=== PATIENT | female | born 1995 | race Caucasian/White ===

== ENCOUNTER 2023-02-22 21:44 | Emergency (ER) | payer MEDICARE, OTHER, SELFPAY ==
--- NOTE | 2023-02-22 21:55 | ED.GENADULT ---
HPI - General Adult General Chief complaint: Vaginal Bleeding Stated complaint: thinks possible miscarriage Time Seen by Provider: 02/22/23 21:52 History of Present Illness HPI narrative: 28-year-old female nonsmoker without chronic medical history presents with a chief complaint of concern for possible miscarriage. She states that she routinely has irregular periods and that her last normal period was back in September. She states that she took a test a few days ago and thinks it was likely faintly positive and had what she describes as implantation bleeding a few days later. She reports some lower back cramping. She states she has used two pads today. She denies any systemic complaints such as dizziness, weakness or lightheadedness. She has no chest pain or shortness of breath. She is had no fever or chills and denies urinary complaints Related Data Allergies Allergy/AdvReac Type Severity Reaction Status Date / Time bacitracin Allergy Intermediate Rash Verified 02/22/23 22:10 [From Triple Antibiotic] erythromycin base Allergy Intermediate Rash Verified 02/22/23 22:10 neomycin Allergy Intermediate Rash Verified 02/22/23 22:10 [From Triple Antibiotic] polymyxin B Allergy Intermediate Rash Verified 02/22/23 22:10 [From Triple Antibiotic] latex AdvReac Intermediate Redness of Verified 02/22/23 22:10 Skin Sulfa (Sulfonamide AdvReac Mild Abdominal Verified 02/22/23 22:10 Antibiotics) Pain Review of Systems Review of Systems Narrative: GENERAL: Denies chills, fatigue, malaise, fever, sweats. HEENT: Denies sinus pain, ear pain, sore throat, difficulty swallowing, dizziness. RESPIRATORY: Denies dyspnea, cough, wheezing, hemoptysis, sputum. CARDIOVASCULAR: Denies chest pain, palpitations, orthopnea, edema, GASTROINTESTINAL: Denies nausea, vomiting, abdominal pain, diarrhea, constipation, melena. : See HPI MUSCULOSKELETAL: denies weakness, joint pain, or bony pain SKIN: Denies rash, skin lesions, or other NEUROLOGIC: Denies weakness, headache, numbness, change in speech, confusion, seizures, incoordination. PSYCHIATRIC: No concerning psychosocial issues. 12 point review of systems is negative except for those stated above Patient History Social History Smoking Status: Never smoker Exam Narrative Exam Narrative: GENERAL: [] year old patient appears stated age. Well-developed patient, in mild distress. HEAD: Atraumatic. Normocephalic. EYES: Pupils equal round and reactive. Extraocular motions intact. No scleral icterus. No injection or drainage. ENT: Nose without bleeding, purulent drainage. Throat without erythema, tonsillar hypertrophy or exudate. Airway patent. NECK: Trachea midline. Non tender CARDIOVASCULAR: Regular rate and rhythm without murmurs, gallops, or rubs. RESPIRATORY: Clear to auscultation. Breath sounds equal bilaterally. No wheezes, rales, or rhonchi. GASTROINTESTINAL: Abdomen soft, non-tender, nondistended. EXTREMITIES: No edema or joint tenderness. BACK: Nontender without deformity or crepitance. No flank tenderness. NEURO: AOx3. SKIN: No rash or erythema of visible areas Initial Vital Signs Initial Vital Signs: Vital Signs Temperature 98.7 F 02/22/23 22:03 Pulse Rate 80 02/22/23 22:03 Respiratory Rate 16 02/22/23 22:03 Blood Pressure 150/92 H 02/22/23 22:03 Pulse Oximetry 96 02/22/23 22:03 Oxygen Delivery Method Room Air 02/22/23 22:03 Course Orders Ordered: ED Orders 02/22/23 22:37 US pelvic complete Stat Urine Microscopic Stat Vital Signs Vital signs: Vital Signs - 8 hr 02/22/23 22:03 02/22/23 23:42 02/22/23 23:43 Temperature 98.7 F Pulse Rate 80 Respiratory Rate 16 Blood Pressure 150/92 H 134/94 H 127/90 Pulse Oximetry 96 Oxygen Delivery Method Room Air 02/22/23 23:43 02/23/23 00:00 02/23/23 00:00 Temperature Pulse Rate 85 94 H Respiratory Rate Blood Pressure 140/93 H Pulse Oximetry 97 96 Oxygen Delivery Method Medical Decision Making Lab Data Labs: Lab Results 02/22/23 Range/Units 22:37 Urine RBC 1-5/hpf (0-5/HPF) Urine WBC 0-1/hpf (0-5/HPF) Ur Squamous Epith Cells 10-30 /hpf H (0-5/HPF) Urine Bacteria Many (>30) H (None) Urine Mucus 2+ H (Negative) Ur Culture Indicated? Cult not indicated Point of Care Testing Test Results Negative Urine Dip Bedside Urine Glucose Negative Bedside Urine Bilirubin - Negative Bedside Urine Ketone - Negative Urine Specific [place] 1.03 Bedside Urine Occult Blood +++ Bedside Urine pH 6 Bedside Urine Protein +/- 15 Bedside Urine Urobilinogen - Negative Bedside Urine Nitrite - Negative Bedside Urine Leukocytes - Negative Esterase Point of care testing: Point of Care Testing Test Results Negative Urine Dip Bedside Urine Glucose Negative Bedside Urine Bilirubin - Negative Bedside Urine Ketone - Negative Urine Specific [place] 1.03 Bedside Urine Occult Blood +++ Bedside Urine pH 6 Bedside Urine Protein +/- 15 Bedside Urine Urobilinogen - Negative Bedside Urine Nitrite - Negative Bedside Urine Leukocytes - Negative Esterase MDM Narrative Medical decision making narrative: [28] year old patient presents with cramping spotting, concerned for miscarriage Multiple etiologies for patient's symptoms considered including, but not limited to: [miscarriage vs. ectopic vs. other] Prior Charts reviewed in our EMR Primary Historian: patient Labs reviewed and interpreted by myself: urine Preg negative Imaging reviewed: US notes abnormal appearing L ovary Patient's symptoms improved over duration of stay with above-stated therapies. Findings and discharge diagnosis discussed with patient/family followed by verbalization of understanding Return precautions discussed with patient/family whom verbalize understanding of diagnosis and plan Discharge Plan Departure Patient Disposition: Home Clinical Impression: Vaginal bleeding Instructions: DI for Vaginal Bleeding Activity Restrictions/Additional Instructions: *You have been diagnosed with [cramping and mild vaginal bleeding, as we discussed your test tonight was negative. It will be important to follow-up with local gynecology to evaluate the findings on your ultrasound as we discussed. Their contact information is listed below, please call them later today to arrange follow-up *What to do: *Please continue to take your regular medications as directed. [ ] New medication prescriptions sent to your pharmacy: [ ] [ ] New medication written as a paper prescription [ ] No new medications given *Please follow up with *If you do not have a primary care provider please contact the [facility] Resource line at [phone]. They will ask some questions about your medical history and help get you set up with a doctor in the community. *Return to Emergency Department if you should have any new, worsening or concerning symptoms, such as [fever greater than 101 F, shaking chills, worsening pain, persistent vomiting or other bothersome symptoms] Referrals: Vee Grossman DO [Physician] - Stand Alone Forms: Patient Portal/API, Work Release Note
[2023-02-22 22:03] VITALS: BP 150/92; PULSE 80; RESP 16; TEMP 37.1; O2SAT 96; BMI 30.4
--- NOTE | 2023-02-22 22:37 | DI.US.S_ITS ---
PROCEDURE: US PELVIC COMPLETE INDICATIONS: CRAMPING/BLEEDING. POSITIVE HOME /NEGATIVE CLINIC. TECHNIQUE: Real-time scanning was performed of the pelvic organs, with image documentation. Additional endovaginal scanning was necessary due to incomplete visualization of the adnexal and endometrial structures by transabdominal scanning. COMPARISON: None. FINDINGS: Uterus: Uterus is anteverted and measures 6.4 x 4.3 x 2.8 cm. Endometrium measures up to 0.4 cm. There is suggestion of an arcuate uterus. Ovaries: The right ovary was not well seen. The left ovary measures 4.9 x 2.4 x 3.0 by cm, with a calculated ovarian volume of 18 cc. The left ovary demonstrates a lobulated hypoechoic mass measuring approximately 3.5 x 1.8 x 1.6 cm. There is internal vascularity on color Doppler interrogation. Other: No pathologic free abdominal or pelvic fluid. IMPRESSION: 1. No intrauterine identified. 2. Lobulated hypoechoic mass in the left ovary with internal vascularity. The findings are nonspecific and may represent an ovarian neoplasm. An ectopic cannot be fully excluded but the appearance is atypical. Recommend short-term follow-up ultrasound or consider further evaluation with MRI. We strive to produce accurate, complete, and clear reports of imaging services. To assist us in improving patient care, this report was composed using standard report templates and voice recognition software. Therefore, it may contain abnormal punctuation, insertions and/or omissions. Occasional wrong-word or sound-alike substitutions may occur. Though we review the report and make efforts to correct it, we do recommend that the report be read carefully in proper context to recognize any text inaccuracies. Dictated by: Clement De La Torre M.D. on 02/23/2023 at 0:02 Approved by: Clement De La Torre M.D. on 02/23/2023 at 0:06
[2023-02-22 22:51] LABS: Bacteria Urine Many (>30); RBC Urine 1-5/HPF (0-5/HPF); Squamous Epithelial Cell Urine 10-30 /HPF (0-5/HPF); WBC Urine 0-1/HPF (0-5/HPF)
[2023-02-22 22:52] LABS: Culture Indicated Urine Cult Not Indicated; Mucus Urine 2+ (Negative)
[2023-02-22 23:42] VITALS: BP 134/94
[2023-02-22 23:43] VITALS: BP 127/90; PULSE 85; O2SAT 97
[2023-02-23] VITALS: BP 140/93; PULSE 94; O2SAT 96
== END 2023-02-23 00:38 | disposition home or self-care (01) ==
PROVIDERS: Emergency Provider Emergency Medicine
DX: N93.9 Abnormal uterine and vaginal bleeding, unspecified (principal)
CPT/HCPCS: 76830; 76856; 81003; 81015; 81025; 99282; 99283

== ENCOUNTER 2023-04-20 13:38 | Emergency (ER) | payer MEDICARE, SELFPAY ==
[2023-04-20 13:48] VITALS: BP 125/93; PULSE 86; RESP 18; TEMP 36.9; O2SAT 98; BMI 29.7
--- NOTE | 2023-04-20 13:58 | DI.US.S_ITS ---
PROCEDURE: US PERIPH VENOUS LOW EXTREM LT INDICATIONS: LEFT LOWER EXTREMITY PAIN TECHNIQUE: Real-time imaging, as well as color and pulse Doppler interrogation, were performed of the lower extremity deep veins from the inguinal ligament to the popliteal fossa, with documentation of the visualized calf veins. COMPARISON: None. FINDINGS: The common femoral, femoral, popliteal, and the visualized calf veins are normally compressible, and free of intraluminal thrombus. Color and pulse Doppler demonstrate normal phasic intraluminal flow. There is normal augmentation response to distal compression maneuver. IMPRESSION: No findings of lower extremity deep venous thrombosis. Dictated by: Adam Louise M.D. on 04/20/2023 at 14:32 Approved by: Adam Louise M.D. on 04/20/2023 at 14:32
[2023-04-20 14:45] VITALS: BP 130/86; PULSE 99; RESP 20; TEMP 36.6; O2SAT 97
[2023-04-20 15:00] LABS: D Dimer 338 ng/ml (<500)
--- NOTE | 2023-04-20 15:16 | ED_ITS ---
HPI - Extremity Problem General Chief complaint: Extremity Problem,Nontraumatic Stated complaint: severe pain in LT leg/HX blood clots Time Seen by Provider: 04/20/23 14:27 Source: patient and family Mode of arrival: Wheelchair History of Present Illness HPI Narrative: 28-year-old female presents for evaluation of left calf pain. She woke last night with an excruciating cramp in her left calf. She she has a history of leg cramps for which her doctor suggested she take potassium tablets which she does intermittently. She has some concerns about a blood clot given that she was on an airplane ride 2 weeks ago. She has difficulty walking because of the pain. She has no chest pain shortness of breath, abdominal pain, back pain. She does not take control pills. She is generally healthy. Related Data Allergies Allergy/AdvReac Type Severity Reaction Status Date / Time bacitracin Allergy Intermediate Rash Verified 02/22/23 22:10 [From Triple Antibiotic] erythromycin base Allergy Intermediate Rash Verified 02/22/23 22:10 neomycin Allergy Intermediate Rash Verified 02/22/23 22:10 [From Triple Antibiotic] polymyxin B Allergy Intermediate Rash Verified 02/22/23 22:10 [From Triple Antibiotic] latex AdvReac Intermediate Redness of Verified 02/22/23 22:10 Skin Sulfa (Sulfonamide AdvReac Mild Abdominal Verified 02/22/23 22:10 Antibiotics) Pain Review of Systems Review of Systems ROS Unobtainable: All systems reviewed & are unremarkable except as noted in HPI and below Patient History Social History Smoking Status: Never smoker Smoking Status: Never smoker alcohol intake frequency: holidays/special occasions only Substance Use Type: does not use Exam Narrative Exam Narrative: GENERAL: 28 year old patient appears stated age. Well-developed patient, in mild distress. HEAD: Atraumatic. Normocephalic. EYES: Pupils equal round and reactive. Extraocular motions intact. No scleral icterus. No injection or drainage. ENT: Nose without bleeding, purulent drainage. CARDIOVASCULAR: Regular rate and rhythm without murmurs, gallops, or rubs. RESPIRATORY: Clear to auscultation. Breath sounds equal bilaterally. No wheezes, rales, or rhonchi. GASTROINTESTINAL: Abdomen soft, non-tender, nondistended. EXTREMITIES: No edema. Calves appear symmetrical. Skin is warm and dry without erythema. She is very tender along the left gastroc. NEURO: AOx3. SKIN: No rash or erythema of visible areas Initial Vital Signs Initial Vital Signs: Vital Signs Temperature 98.4 F 04/20/23 13:48 Pulse Rate 86 04/20/23 13:48 Respiratory Rate 18 04/20/23 13:48 Blood Pressure 125/93 H 04/20/23 13:48 Pulse Oximetry 98 04/20/23 13:48 Oxygen Delivery Method Room Air 04/20/23 13:48 Course Orders Ordered: Discontinued Medications Ketorolac Tromethamine (Ketorolac 30 Mg/Ml Vial) 30 mg IM NOW ONE Stop: 04/20/23 15:56 Last Admin: 04/20/23 15:58 Dose: Not Given Documented By: RONALDO Vital Signs Vital signs: Vital Signs - 8 hr 04/20/23 13:48 04/20/23 14:45 Temperature 98.4 F 97.9 F Pulse Rate 86 99 H Respiratory Rate 18 20 Blood Pressure 125/93 H 130/86 Pulse Oximetry 98 97 Oxygen Delivery Method Room Air Room Air MDM - Extremity (Nontraumatic) Differential Diagnosis Differential diagnosis: Likely superficial thrombophlebitis, deep venous thrombosis of upper extremity and other (Muscle strain.) Lab Data Labs: Lab Results 04/20/23 Range/Units 14:41 D-Dimer 338 (<500) ng/ml Imaging Data US - DVT: Radiologist's Impression: PROCEDURE: US PERIPH VENOUS LOW EXTREM LT INDICATIONS: LEFT LOWER EXTREMITY PAIN TECHNIQUE: Real-time imaging, as well as color and pulse Doppler interrogation, were performed of the lower extremity deep veins from the inguinal ligament to the popliteal fossa, with documentation of the visualized calf veins. COMPARISON: None. FINDINGS: The common femoral, femoral, popliteal, and the visualized calf veins are normally compressible, and free of intraluminal thrombus. Color and pulse Doppler demonstrate normal phasic intraluminal flow. There is normal augmentation response to distal compression maneuver. IMPRESSION: No findings of lower extremity deep venous thrombosis. Dictated by: Adam Louise M.D. on 04/20/2023 at 14:32 Approved by: Adam Louise M.D. on 04/20/2023 at 14:32 [facility] Narrative Medical decision making narrative: 28-year-old female with a history of leg cramps who presents with what sounds like another leg cramp. Exam is reassuring D-dimer is negative and ultrasound of the left lower extremity is negative for DVT. I am reassured that this is muscular in nature. Patient was discussed with Dr. Thomas who agrees with asse ssment and plan. Discharge Plan Departure Patient Disposition: Home Clinical Impression: Muscle strain of left lower extremity Qualifiers: Encounter type: initial encounter Qualified Code(s): S86.912A - Strain of unspecified muscle(s) and tendon(s) at lower leg level, left leg, initial encounter Instructions: DI for Nocturnal Leg Cramps, Stretching Routine Before Bedtime May Decrease Nighttime Leg Cramps Activity Restrictions/Additional Instructions: Test result are negative for a blood clot. Your exam is reassuring and I do think that the cramping caused some minor muscle injury that should resolve over time. You can use ice pack or heating pad to the area depending on what feels best. I would suggest he take ibuprofen at 400 mg 3 to 4 times a day with food. Continue to use your potassium as directed by your physician. You can add magnesium to your supplements at 200-300 mg per day. There is not a lot of conclusive evidence that it will reduce the frequency or severity of leg cramps but it does help some people. You can also get magnesium in nuts. Follow-up with your regular provider as needed. It was a pleasure take to take care of you today. Stand Alone Forms: Patient Portal/API, Work Release Note
[2023-04-20 16:04] VITALS: BP 126/80; PULSE 97; RESP 18; TEMP 36.9; O2SAT 96
== END 2023-04-20 16:09 | disposition home or self-care (01) ==
PROVIDERS: Emergency Provider Physician Assistant
DX: T14.8XXA Other injury of unspecified body region, initial encounter (principal); X58.XXXA Exposure to other specified factors, initial encounter
CPT/HCPCS: 85379; 93971; 99281; 99283

== ENCOUNTER → 2023-10-24 12:16 | Outpatient (CLI) | payer MEDICARE, SELFPAY ==
--- NOTE | 2023-10-24 12:18 | DI.US.S_ITS ---
PROCEDURE: US PELVIC COMPLETE INDICATIONS: Pelvic and perineal pain TECHNIQUE: Real-time scanning was performed of the pelvic organs, with image documentation. Additional endovaginal scanning was necessary due to incomplete visualization of the adnexal and endometrial structures by transabdominal scanning. COMPARISON: [facility], US, US PELVIC COMPLETE, 02/22/2023, 22:57. FINDINGS: Uterus: Uterus is anteverted and normal in size at 6.6 x 2.8 x 4.1 cm. The myometrium is homogeneous. The endometrium measures 5.4 mm combined thickness. Ovaries: The right ovary measures 1.6 x 2.7 x 1.4 cm, with a calculated ovarian volume of 3.2 cc. The left ovary measures 1.3 x 2.8 x 2.0 cm, with a calculated ovarian volume of 3.6 cc. The ovaries have a normal sonographic appearance. Less than 12 follicles can be seen in each ovary. No adnexal masses are seen. Other: No pathologic free abdominal or pelvic fluid. IMPRESSION: Unremarkable exam. We strive to produce accurate, complete, and clear reports of imaging services. To assist us in improving patient care, this report was composed using standard report templates and voice recognition software. Therefore, it may contain abnormal punctuation, insertions and/or omissions. Occasional wrong-word or sound-alike substitutions may occur. Though we review the report and make efforts to correct it, we do recommend that the report be read carefully in proper context to recognize any text inaccuracies. Dictated by: Yael Stewart M.D. on 10/24/2023 at 19:54 Approved by: Yael Stewart M.D. on 10/24/2023 at 19:55
== END ==
LOC: US 12:16
PROVIDERS: PCP Physician Assistant; Referring Provider Physician Assistant; Visit Provider Physician Assistant
DX: N92.6 Irregular menstruation, unspecified (principal); R10.2 Pelvic and perineal pain
CPT/HCPCS: 76830; 76856; 93975

== ENCOUNTER 2023-11-17 21:29 | Emergency (ER) | payer MEDICARE, SELFPAY ==
[2023-11-17] VITALS (7 sets, daily range): BP systolic 136–150; BP diastolic 69–102; PULSE 103–120; RESP 18; TEMP 36.8–37.7; O2SAT 96–97; BMI 28.8
--- NOTE | 2023-11-17 22:09 | ED_ITS ---
HPI - General Adult General Chief complaint: Fever Stated complaint: FLU LIKE SYMPTOMS/COVID+ Time Seen by Provider: 11/17/23 22:09 Source: patient Mode of arrival: Ambulatory Limitations: no limitations History of Present Illness HPI narrative: 28-year-old female with history of PCOS recently started on metformin but stopped it as she started developed flu-like symptoms. Patient states she has had fevers up to 102 F, nasal congestion cough muscle aches, sore throat, no hoarseness. No chest pain or shortness of breath. States she threw up once today when she took a leave but was on an empty stomach. She has not had any additional nausea or vomiting. She states little bit diarrhea. No urinary symptoms. No rash or skin changes. Patient states she took a home influenza test which was positive earlier today. She states symptoms started this Sunday 4 days ago. Patient has been taking a leave for fever, has not tried any Tylenol. She states did start metformin recently but was told by her phys ician to stop it as she is having flu symptoms. Patient states allergy to bacitracin, latex sulfa. No tobacco, no regular alcohol, no recreational drugs. Related Data Allergies Allergy/AdvReac Type Severity Reaction Status Date / Time bacitracin Allergy Intermediate Rash Verified 02/22/23 22:10 [From Triple Antibiotic] erythromycin base Allergy Intermediate Rash Verified 02/22/23 22:10 neomycin Allergy Intermediate Rash Verified 02/22/23 22:10 [From Triple Antibiotic] polymyxin B Allergy Intermediate Rash Verified 02/22/23 22:10 [From Triple Antibiotic] latex AdvReac Intermediate Redness of Verified 02/22/23 22:10 Skin Sulfa (Sulfonamide AdvReac Mild Abdominal Verified 02/22/23 22:10 Antibiotics) Pain Review of Systems Review of Systems ROS Unobtainable: All systems reviewed & are unremarkable except as noted in HPI and below Patient History Social History Smoking Status: Never smoker Smoking Status: Never smoker alcohol intake frequency: holidays/special occasions only Substance Use Type: does not use Exam Narrative Exam Narrative: GEN: well nourished, well appearing female, alert and oriented x 3, patient appears to be in mild distress. HEENT: Atraumatic, pupils are equal round reactive to light, extraocular movements are intact, nares, mild clear rhinorrhea, TMs are clear with no fluid, there is no conjunctival pallor. Throat is clear without any exudates, erythema, tonsillar enlargement or uvular deviation HEART: Regular rate and rhythm without murmur, clicks, rubs. LUNGS:Lungs clear to auscultation, no wheezes, rales, crackles, chest moves symmetrically, no tachypnea or accessory muscle use ABD:bowel sounds normal, soft, non-tender, no guarding, rebound, rigidity, no masses noted, no hepatosplenomegaly :No CVA tenderness MSCL: Non-tender, no muscle atrophy, muscles strength 5/5 upper and lower extremities, full range of motion, normal gait NEURO:CN 2-12 intact, sensation normal SKIN: No rash, erythema or other skin changes. Initial Vital Signs Initial Vital Signs: Vital Signs Pulse Rate 119 H 11/17/23 21:37 Pulse Oximetry 96 11/17/23 21:37 Course Orders Ordered: ED Orders 11/17/23 21:54 Respiratory Panel (Film Array) Stat Vital Signs Vital signs: Vital Signs - 8 hr 11/17/23 21:37 11/17/23 21:38 11/17/23 21:38 Temperature Pulse Rate 119 H 117 H Respiratory Rate Blood Pressure 136/94 H Pulse Oximetry 96 96 Oxygen Delivery Method 11/17/23 21:41 11/17/23 22:00 11/17/23 22:00 Temperature 99.8 F H Pulse Rate 116 H 108 H Respiratory Rate 18 Blood Pressure 136/94 H 141/102 H Pulse Oximetry 96 96 Oxygen Delivery Method Room Air 11/17/23 22:30 11/17/23 22:30 11/17/23 22:41 Temperature 98.3 F Pulse Rate 120 H Respiratory Rate Blood Pressure 150/69 H Pulse Oximetry 96 Oxygen Delivery Method 11/17/23 23:00 11/17/23 23:00 Temperature Pulse Rate 103 H Respiratory Rate Blood Pressure 147/95 H Pulse Oximetry 97 Oxygen Delivery Method Medical Decision Making Lab Data Labs: Lab Results 11/17/23 Range/Units 21:54 Chlamy pneumoniae PCR Not detected (Not Detect) Adenovirus (PCR) Not detected (Not Detect) B.parapertussis DNA PCR Not detected (Not Detecte) Coronavirus OC43 (PCR) Not detected (Not Detect) Coronavirus HKU1 (PCR) Not detected (Not Detect) Coronavirus 229E (PCR) Not detected (Not Detect) SARS-CoV-2 (PCR) Not detected (Not Detecte) Coronavirus NL63 (PCR) Not detected (Not Detect) Human Metapneumovir PCR Not detected (Not Detect) Influenza Type A (PCR) Not detected (Not Detect) Influenza Type B (PCR) Not detected (Not Detect) M. pneumoniae (PCR) Not detected (Not Detect) Parainfluenza 1 (PCR) Not detected (Not Detect) Parainfluenza 2 (PCR) Not detected (Not Detect) Parainfluenza 3 (PCR) Detected H (Not Detect) Parainfluenza 4 (PCR) Not detected (Not Detect) RSV (PCR) Not detected (Not Detect) Entero/Rhino (PCR) Not detected (Not Detect) MDM Narrative Medical decision making narrative: 28-year-old female who reports flu symptoms who had a home flu test which was positive. Patient has symptoms consistent with influenza or similar infection. Respiratory panel is positive for parainfluenza. Patient was slightly tachycardic but has been improving while she has been orally hydrating she is afebrile then felt appropriate for discharge home. She was taking alleve a little too frequently, discussed proper dosing and also encouraged Tylenol for fevers and symptoms. Discharge Plan Departure Patient Disposition: Home Clinical Impression: Parainfluenza infection Instructions: DI for Influenza -- Adult Activity Restrictions/Additional Instructions: You have tested positive for parainfluenza, this is common viral illness that can cause upper respiratory infections and flu-like symptoms. Typically last 7-10 days. Can take Tylenol up to a 1000 mg every 6 hours as needed for fevers or symptoms, you can take a leave Aleve or naproxen 1 tablet every 8-12 hours, do not exceed 3 tablets in 24 hours. I do recommend that you continue to hydrate. Please return for difficulty with breathing, chest pain, lightheadedness or passing out, persistent vomiting, signs of dehydration or other new or concerning changes. Referrals: Tierra Mckeon PA-C [Primary Care Provider] - Stand Alone Forms: Patient Portal/API, Work Release Note
[2023-11-17 22:50] LABS: Adenovirus Not Detected (Not Detect); B. parapertussis Not Detected (Not Detecte); Bordetella pertussis Not Detected (Not Detect); Chlamydophila pneumoniae Not Detected (Not Detect); Coronavirus 229E Not Detected (Not Detect); Coronavirus HKU1 Not Detected (Not Detect); Coronavirus NL 63 Not Detected (Not Detect); Coronavirus OC43 Not Detected (Not Detect); Human Metapneumovirus Not Detected (Not Detect); Human Rhinovirus/Enterovirus Not Detected (Not Detect); Influenza A Not Detected (Not Detect); Influenza B Not Detected (Not Detect); Mycoplasma pneumoniae Not Detected (Not Detect); Parainfluenza Virus 1 Not Detected (Not Detect); Parainfluenza Virus 2 Not Detected (Not Detect); Parainfluenza Virus 3 Detected (Not Detect); Parainfluenza Virus 4 Not Detected (Not Detect); Respiratory Syncytial Virus Not Detected (Not Detect); SARS- CoV-2 Not Detected (Not Detecte)
== END 2023-11-17 23:26 | disposition home or self-care (01) ==
PROVIDERS: Emergency Provider Emergency Medicine; PCP Physician Assistant
DX: B34.8 Other viral infections of unspecified site (principal)
CPT/HCPCS: 87633; 99281; 99282